=== PATIENT | female | born 1955 | race Caucasian/White ===

== ENCOUNTER 2018-05-23 13:29 | Day surgery (SDC) | payer MEDICAID ==
[~2018-05-23] VITALS: Ht 167.6 cm; Wt 83.6 kg
[2018-05-23] MEDS ORDERED: MIDAZolam 5mg/5ml vial ONE (13:37)
[2018-05-23] MEDS ORDERED: fentaNYL/PF 50MCG/1 ML 2ML syringe ONE (13:37)
[2018-05-23] MEDS ORDERED: LIDOcaine Viscous 15ml cup ONE (13:37)
[2018-05-23 13:45] VITALS: BP 127/58
[2018-05-23] MEDS ORDERED: ALBU8.5H8 INH (14:05)
[2018-05-23] MEDS ORDERED: ALB0.5UD IH (14:05)
[2018-05-23] MEDS ORDERED: AMLO2.5T2 PO (14:05)
[2018-05-23] MEDS ORDERED: BUTA1CAP58 PO (14:07)
[2018-05-23] MEDS ORDERED: CYCL-394 (14:08)
[2018-05-23] MEDS ORDERED: DIAZ5TAB4 PO (14:08)
[2018-05-23] MEDS ORDERED: DOCU50LI22 PO (14:10)
[2018-05-23] MEDS ORDERED: HYDR-3965 PO (14:11)
[2018-05-23] MEDS ORDERED: NAPR-56 PO (14:12)
[2018-05-23] MEDS ORDERED: IBUP-24 PO (14:12)
[2018-05-23] MEDS ORDERED: NICO-687 TOP (14:12)
[2018-05-23] MEDS ORDERED: NITR0.4T51 SL (14:13)
[2018-05-23] MEDS ORDERED: OMEP40CA37 PO (14:13)
[2018-05-23] MEDS ORDERED: OMEP1PAC3 (14:14)
[2018-05-23] MEDS ORDERED: PROM25TA14 PO (14:15)
[2018-05-23] MEDS ORDERED: QUET25TA PO (14:15)
[2018-05-23] MEDS ORDERED: SERT25TA PO (14:16)
[2018-05-23] MEDS ORDERED: TRAZ-219 PO (14:16)
[2018-05-23] MEDS ORDERED: SIMV10TA2 PO (14:16)
[2018-05-23 14:33] VITALS: BP 132/59
[2018-05-23 14:42] VITALS: BP 110/52
[2018-05-23 14:52] VITALS: BP 112/65
[2018-05-23 14:58] VITALS: BP 116/57
[2018-05-23 15:03] VITALS: BP 106/62
== END 2018-05-23 15:30 | disposition home or self-care (01) ==
LOC: GI LAB 13:29
PROVIDERS: ATTEND Internal Medicine Gastroenterology
DX: K29.50 Unspecified chronic gastritis without bleeding (principal); I10 Essential (primary) hypertension; J44.9 Chronic obstructive pulmonary disease, unspecified; K21.9 Gastro-esophageal reflux disease without esophagitis; E03.9 Hypothyroidism, unspecified; F12.90 Cannabis use, unspecified, uncomplicated; F17.210 Nicotine dependence, cigarettes, uncomplicated; Z90.49 Acquired absence of other specified parts of digestive tract; Z88.0 Allergy status to penicillin; Z88.2 Allergy status to sulfonamides; Z88.3 Allergy status to other anti-infective agents; Z88.1 Allergy status to other antibiotic agents; Z87.39 Personal history of other diseases of the musculoskeletal system and connective tissue; Z79.891 Long term (current) use of opiate analgesic; Z79.899 Other long term (current) drug therapy; Z98.890 Other specified postprocedural states
CPT/HCPCS: 43239; 99152; J2250; J3010; J7030; A4620